=== PATIENT | male | born 1955 | race Caucasian/White ===

== ENCOUNTER 2022-03-31 22:30 | Emergency (ER) | payer OTHER, SELFPAY ==
[2022-03-31 22:40] VITALS: BP 156/75; PULSE 86; RESP 20; TEMP 37.6; O2SAT 97
[2022-03-31 23:45] LABS: Influenza A QL RT-PCR Negative (Negative); Influenza B QL RT-PCR Negative (Negative); RSV RNA, RT-PCR Negative (Negative); SARS-CoV-2 RNA PCR Positive
[2022-04-01 00:34] VITALS: BP 150/84; PULSE 82; RESP 14; TEMP 37.1; O2SAT 97
--- NOTE | 2022-04-01 00:51 | ED.URI ---
HPI - URI/Sore Throat General Chief Complaint: Upper Respiratory Infection <NIR Krishnan Last Filed: 04/01/22 02:39> Stated Complaint: upper resp <Leslie Blackburn PA-C - Last Filed: 04/01/22 02:39> Time Seen by Provider: 04/01/22 00:41 <Leslie Blackburn PA-C - Last Filed: 04/01/22 02:39> History of Present Illness HPI Narrative: Patient is a 77-year-old male with a history of hyperlipidemia here for evaluation of runny nose, sinus congestion and fevers at home. Patient took a home COVID test that was positive. States he came to the ED to confirm his positive test and received prescription for Paxlovid. He is fully vaccinated against COVID. He denies any chest pain, shortness of breath, nausea or vomiting, cough. <NIR Krishnan Last Filed: 04/01/22 02:39> Related Data Allergies/Adverse Reactions: Allergies Allergy/AdvReac Type Severity Reaction Status Date / Time No Known Allergies Allergy Verified 04/01/22 00:34 <NIR Krishnan Last Filed: 04/01/22 02:39> Review of Systems Review of Systems: Gen: Reports fevers Eyes: Denies eye pain or visual change ENT: Reports congestion Respiratory: Denies shortness of breath or cough CV: Denies chest pain or palpitations GI: Denies abdominal pain nausea, emesis or diarrhea denies burning, urgency, frequency or hematuria Musculoskeletal: Denies back pain or muscle pain Neuro: Denies numbness, tingling, weakness or focal weakness Skin: Denies rash Except as documented, all other systems reviewed and negative <NIR Krishnan Last Filed: 04/01/22 02:39> Exam Narrative: APPEARANCE: Well appearing, no pain in distress, well-nourished. Head: Normocephalic and atraumatic. EYES: PERRLA/EOMI, conjunctivae clear NOSE: No nasal drainage EARS: External ear normal in appearance THROAT: Oropharynx is clear. Mucous membranes are moist. NECK: Supple. No adenopathy, no masses. RESPIRATORY: Airway patent, respirations nonlabored. Clear to auscultation bilaterally, no rales, rhonchi, wheezing. CARDIOVASCULAR: Regular rate and rhythm without murmurs, rubs, or gallops. ABDOMINAL: Normoactive bowel sounds. Soft, nontender, nondistended. No rebound tenderness or guarding. MUSCULOSKELETAL: Extremities are warm and well-perfused. Moves all extremities well. No edema. NEURO: Normal speech. No focal neurologic deficits. SKIN: Skin is warm and dry. No rashes. PSYCHIATRIC: Normal affect/mood.. <Leslie Blackburn PA-C - Last Filed: 04/01/22 02:39> Course [employer] Physician Supervision For this encounter, I have reviewed the mid-level provider documentation, treatment plan and medical decision making. I have had [id number] time with the patient. Physical exam revealed a healthy-appearing 67-year-old male with stable vital signs. He is in no respiratory distress. His lung exam is normal. Patient is vaccinated and is low risk for complications from COVID. He is requesting Paxlovid. A prescription will be provided. Patient given return precautions. All questions answered. Patient in agreement w/ disposition. <Rui Ornelas MD - Last Filed: 04/01/22 03:38> Vital Signs Vital signs: Vital Signs Temperature 99.7 F H 03/31/22 22:40 Pulse Rate 86 03/31/22 22:40 Respiratory Rate 20 03/31/22 22:40 Blood Pressure 156/75 H 03/31/22 22:40 Pulse Oximetry 97 03/31/22 22:40 Oxygen Delivery Room Air 03/31/22 22:40 Temperature 99.0 F 04/01/22 03:06 Pulse Rate 88 04/01/22 03:06 Respiratory Rate 20 04/01/22 03:06 Blood Pressure 141/76 H 04/01/22 03:06 Pulse Oximetry 95 04/01/22 03:06 Oxygen Delivery Room Air 04/01/22 03:06 <Leslie Blackburn PA-C - Last Filed: 04/01/22 02:39> Vital Signs Temperature 99.7 F H 03/31/22 22:40 Pulse Rate 86 03/31/22 22:40 Respiratory Rate 20 03/31/22 22:40 Blood Pressure 156/75 H 03/31/22 2
[2022-04-01 03:06] VITALS: BP 141/76; PULSE 88; RESP 20; TEMP 37.2; O2SAT 95
== END 2022-04-01 01:35 | disposition home or self-care (01) ==
PROVIDERS: Emergency Medicine; Emergency Provider Physician Assistant
DX: U07.1 COVID-19 (principal)
CPT/HCPCS: 87637; 99283